=== PATIENT | male | born 1930 | race Hispanic/Latino ===

== ENCOUNTER → 2017-06-06 | Outpatient (CLI) | payer BC, MEDICARE ==
[~2017-06-06] MED LIST: AEC81 PO; LINA5TAB PO; LORA10CA PO; LOSA50TA37 PO; METO-408 PO; ROSU10TA PO
== END | disposition home or self-care (01) ==
LOC: SHCH 08:01
PROVIDERS: ATTEND Internal Medicine Cardiovascular Disease
DX: I10 Essential (primary) hypertension (principal)
CPT/HCPCS: 93306

== ENCOUNTER → 2017-08-13 | Outpatient (CLI) | payer BC, MEDICARE | LOC: RAH 16:08 | PROVIDERS: ATTEND Internal Medicine | DX: M19.072 Primary osteoarthritis, left ankle and foot (principal); M77.32 Calcaneal spur, left foot; M25.872 Other specified joint disorders, left ankle and foot; L03.116 Cellulitis of left lower limb | CPT/HCPCS: 73630 ==

== ENCOUNTER → 2020-04-15 | Outpatient (CLI) | payer OTHER, MEDICARE ==
[~2020-04-15] MED LIST changes: -LOSA50TA37 PO; +LOSA50TA64 PO; -ROSU10TA PO; +ROSU10TA22 PO
== END | disposition home or self-care (01) ==
LOC: SHCH 13:15
PROVIDERS: ATTEND Internal Medicine Cardiovascular Disease
DX: I11.9 Hypertensive heart disease without heart failure (principal)
CPT/HCPCS: 93306; 93356

== ENCOUNTER → 2020-04-20 | Outpatient (CLI) | payer OTHER, MEDICARE | END | disposition home or self-care (01) | LOC: SHCH 12:37 | PROVIDERS: ATTEND Internal Medicine Cardiovascular Disease | DX: I82.812 Embolism and thrombosis of superficial veins of left lower extremity (principal); R60.9 Edema, unspecified | CPT/HCPCS: 93970 ==

== ENCOUNTER → 2020-08-31 | Outpatient (CLI) | payer MEDICARE, OTHER | END | disposition home or self-care (01) | LOC: RAH 11:33 | PROVIDERS: ATTEND Internal Medicine | DX: Z01.818 Encounter for other preprocedural examination (principal) | CPT/HCPCS: 71046 ==

== ENCOUNTER → 2020-09-06 | Outpatient (CLI) | payer MEDICARE, OTHER ==
[~2020-09-06] VITALS: Ht 172.7 cm; Wt 70.3 kg
[~2020-09-06] MED LIST changes: +ASCO500T20 PO; +BIOT10005 PO; +ESOM40CA54 PO; +FOLIC ACID PO; +LOSA100T58 PO; +METO-391 PO; +REGADENOSON 0.4 MG/5 ML PF SYG IVP SCH; +SITA50TA PO; +VITAMIN B12 IM; +VITAMIN D3 PO
== END | disposition home or self-care (01) ==
LOC: SHCH 08:56
PROVIDERS: ATTEND Internal Medicine Cardiovascular Disease
DX: R06.00 Dyspnea, unspecified (principal); R55 Syncope and collapse
CPT/HCPCS: 78452; 93017; 96374; A9500 ×2

== ENCOUNTER 2020-09-08 20:04 | Emergency (ER) | payer OTHER, MEDICARE ==
[~2020-09-08] VITALS: Ht 170.2 cm; Wt 71.7 kg
[~2020-09-08 20:04] MED LIST changes: -ASCO500T20 PO; -BIOT10005 PO; -ESOM40CA54 PO; -FOLIC ACID PO; -LOSA100T58 PO; -METO-391 PO; -REGADENOSON 0.4 MG/5 ML PF SYG IVP SCH; -SITA50TA PO; -VITAMIN B12 IM; -VITAMIN D3 PO
[2020-09-08] MEDS ORDERED: HYDROCODONE/ACETAMINOPHEN 10/325 MG TAB ONE (20:41)
[2020-09-08] MEDS ORDERED: TETANUS/DIPHTHERIA TOXOID [ADULT] 0.5 ML VIAL IM ONE (20:41)
[2020-09-08 21:01] LABS: BASOPHILS % (AUTO) 0.5 % (0.0-5.0); EOSINOPHILS % (AUTO) 3.1 % (0.0-8.0); HEMATOCRIT 26.4 % (42-54); LYMPHOCYTES % (AUTO) 31.9 % (21.0-51.0); MEAN CORPUSCULAR HEMOGLOBIN 33.6 pg (27.0-33.0); MEAN CORPUSCULAR HGB CONC 34.5 g/dL (32.0-36.0); MEAN CORPUSCULAR VOLUME 97.4 fL (79-99); MONOCYTES % (AUTO) 10.3 % (3.0-13.0); NEUTROPHILS % (AUTO) 53.2 % (40.0-77.0); PLATELET COUNT (AUTO) 235 K/uL (130-400); RED BLOOD CELL COUNT(AUTO) 2.71 MIL/uL (4.50-6.20); RED CELL DISTRIBUTION WIDTH 15.3 % (11.0-15.5); WHITE BLOOD COUNT (AUTO) 8.2 K/uL (4.8-10.8)
[2020-09-08 21:11] LABS: CREATININE 1.5 mg/dL (0.5-1.5)
[2020-09-08 21:17] LABS: INR 0.98 (0.85-1.15); PROTHROMBIN TIME 10.7 SEC (9.6-11.6)
[2020-09-08 21:18] LABS: PARTIAL THROMBOPLASTIN TIME 24.5 SEC (26.3-35.5)
[2020-09-08 21:20] LABS: ALBUMIN 3.6 g/dL (3.5-5.0); BILIRUBIN,TOTAL 0.3 mg/dL (0.2-1.0); TOTAL PROTEIN, SERUM 7.5 g/dL (6.0-8.3)
[2020-09-08] MEDS ORDERED: NIFEDIPINE 10 MG CAP PO SCH (21:45)
[2020-09-14] MEDS ORDERED: SITA50TA PO (13:52)
[2020-09-14] MEDS ORDERED: METO-391 PO (13:52)
[2020-09-14] MEDS ORDERED: ASCO500T20 PO (13:52)
[2020-09-14] MEDS ORDERED: ESOM40CA54 PO (13:52)
[2020-09-14] MEDS ORDERED: LOSA100T58 PO (13:52)
[2020-09-14] MEDS ORDERED: VITAMIN D3 PO (13:52)
[2020-09-14] MEDS ORDERED: BIOT10005 PO (13:52)
[2020-09-14] MEDS ORDERED: FOLIC ACID PO (13:52)
[2020-09-14] MEDS ORDERED: VITAMIN B12 IM (13:52)
== END 2020-09-08 22:03 | disposition home or self-care (01) ==
LOC: EDH 20:04
DX: S01.112A Laceration without foreign body of left eyelid and periocular area, initial encounter (principal); S51.012A Laceration without foreign body of left elbow, initial encounter; D64.9 Anemia, unspecified; I25.10 Atherosclerotic heart disease of native coronary artery without angina pectoris; I10 Essential (primary) hypertension; W18.39XA Other fall on same level, initial encounter; Y93.01 Activity, walking, marching and hiking; Y92.89 Other specified places as the place of occurrence of the external cause; Y99.8 Other external cause status
CPT/HCPCS: 12011; 36415; 70450; 71045; 72125; 73080; 80053; 84484; 85025; 85610; 85730; 90471; 90714; 93005

== ENCOUNTER 2020-09-15 09:28 | Day surgery (SDC) | payer OTHER, MEDICARE ==
[2020-09-13 14:36] LABS: APPEARANCE,URINE Cloudy (CLEAR); BASOPHILS % (AUTO) 0.5 % (0.0-5.0); BILIRUBIN,URINE Small (NEGATIVE); COLOR,URINE Dark Yellow (YELLOW); EOSINOPHILS % (AUTO) 1.7 % (0.0-8.0); GLUCOSE, URINE (UA) Negative (NEGATIVE); HEMATOCRIT 28.5 % (42-54); KETONES,URINE 15 mg/dL (NEGATIVE); LEUKOCYTE ESTERASE ,URINE Trace (NEGATIVE); LYMPHOCYTES % (AUTO) 21.9 % (21.0-51.0); MEAN CORPUSCULAR HEMOGLOBIN 32.3 pg (27.0-33.0); MEAN CORPUSCULAR HGB CONC 35.1 g/dL (32.0-36.0); MEAN CORPUSCULAR VOLUME 91.9 fL (79-99); NITRATE,URINE Negative (NEGATIVE); OCCULT BLOOD,URINE Negative (NEGATIVE); PLATELET COUNT (AUTO) 339 K/uL (130-400); PROTEIN,URINE POS 2+ mg/dL (NEGATIVE); RED CELL DISTRIBUTION WIDTH 14.6 % (11.0-15.5); WHITE BLOOD COUNT (AUTO) 10.4 K/uL (4.8-10.8)
[2020-09-13 14:45] LABS: CREATININE 1.5 mg/dL (0.5-1.5); POTASSIUM 3.9 mmol/L (3.5-5.1)
[2020-09-13 14:47] LABS: PROTHROMBIN TIME 10.9 SEC (9.6-11.6)
[2020-09-13 14:48] LABS: PARTIAL THROMBOPLASTIN TIME 26.1 SEC (26.3-35.5)
[2020-09-13 15:21] LABS: MUCUS,URINE Many LPF (None Seen)
[2020-09-13 15:27] LABS: BACTERIA,URINE Few /HPF (None Seen); RBC,URINE None Seen /HPF (0-1); SQUAMOUS EPITHELIAL CELL,UR 0-2 /HPF (0-2)
[2020-09-14 13:25] VITALS: BP 116/69
[2020-09-15] VITALS (10 sets, daily range): BP systolic 131–160; BP diastolic 67–78
[~2020-09-15] VITALS: Ht 170.2 cm; Wt 71.7 kg
[~2020-09-15 09:28] MED LIST changes: -AEC81 PO; +ASCO500T20 PO; +BIOT10005 PO; +ESOM40CA54 PO; +FOLIC ACID PO; -LINA5TAB PO; -LORA10CA PO; +LOSA100T58 PO; -LOSA50TA64 PO; +METO-391 PO; -METO-408 PO; +SITA50TA PO; +SODIUM CHLORIDE 0.9% 500ML 500 ML IV SCH; +VITAMIN B12 IM; +VITAMIN D3 PO
[2020-09-15] MEDS ORDERED: SODIUM CHLORIDE 0.9% 1000ML 1,000 ML IV ONE (10:32)
[2020-09-15] MEDS ORDERED: MIDAZOLAM HCL 1 MG/ML 2ML VIAL ONE (12:04)
[2020-09-15] MEDS ORDERED: NITROGLYCERIN 2 MG/VIAL VIAL IV ONE (12:04)
[2020-09-15] MEDS ORDERED: IOHEXOL 350 MG/ML 100ML INFUS..BTL IV ONE (12:04)
[2020-09-15] MEDS ORDERED: HEPARIN SODIUM 1000UNIT/ML 10ML VIAL ONE (12:04)
[2020-09-15] MEDS ORDERED: LIDOCAINE HCL 2% 20ML ONE (12:04)
[2020-09-15] MEDS ORDERED: IOHEXOL-350 50ML VIAL IV ONE (12:04)
[2020-09-15] MEDS ORDERED: NICARDIPINE HCL 25 MG/10 ML ML IV ONE (12:04)
[2020-09-15] MEDS ORDERED: MEPERIDINE-PF 25 MG/ML SYG ONE (12:04)
[2020-09-15] MEDS ORDERED: SODIUM BICARB 50MEQ 50ML VIAL 50 ML ONE (12:04)
[2020-09-15] MEDS ORDERED: SODIUM CHLORIDE 0.9% 1000ML 1,000 ML IV SCH (13:45)
[2020-09-15] MEDS ORDERED: DEXTROSE 50%-WATER 50 ML DISP.SYRIN IV PRN (13:45)
[2020-09-15] MEDS ORDERED: ACETAMINOPHEN 325 MG TAB ONE (16:12)
[2020-09-15] MEDS ORDERED: ACETAMINOPHEN 325 MG TAB PO ONE (16:15)
[2020-09-15] MEDS ORDERED: INSULIN HUMULIN R 100 UNIT/ML 3ML SQ SCH (16:30)
== END 2020-09-15 17:40 | disposition home or self-care (01) ==
LOC: DAH 09:28
PROVIDERS: ATTEND Internal Medicine Cardiovascular Disease
DX: I25.119 Atherosclerotic heart disease of native coronary artery with unspecified angina pectoris (principal); I10 Essential (primary) hypertension; E78.5 Hyperlipidemia, unspecified; E11.9 Type 2 diabetes mellitus without complications; D64.9 Anemia, unspecified; Z79.899 Other long term (current) drug therapy; Z98.890 Other specified postprocedural states; Z79.82 Long term (current) use of aspirin; Z79.84 Long term (current) use of oral hypoglycemic drugs; Z79.01 Long term (current) use of anticoagulants; Z95.5 Presence of coronary angioplasty implant and graft
CPT/HCPCS: 36415; 71045; 80048; 81001; 82948 ×2; 85025; 85610; 85730; 93005; 93458; A4215; A4216; A4221; A4222; A4223 ×3; A4606; A4663; C1769; C1894; J1644 ×2; J2175; J2250; J3490 ×4; J7030; Q9965; Q9967 ×2; 96360; 96361; 99156; 99157

== ENCOUNTER → 2020-10-12 | Outpatient (CLI) | payer MEDICARE, OTHER ==
[~2020-10-12] MED LIST changes: +IOHEXOL-350 75 ML VIAL IV ONE; -SODIUM CHLORIDE 0.9% 500ML 500 ML IV SCH
== END | disposition home or self-care (01) ==
LOC: RAH 07:51
PROVIDERS: ATTEND Internal Medicine
DX: G46.2 Posterior cerebral artery syndrome (principal); I67.2 Cerebral atherosclerosis
CPT/HCPCS: 70496; Q9967

== ENCOUNTER 2020-12-21 10:29 | Day surgery (SDC) | payer MEDICARE ==
[~2020-12-21] VITALS: Ht 170.2 cm; Wt 64.4 kg
[~2020-12-21 10:29] MED LIST changes: -IOHEXOL-350 75 ML VIAL IV ONE
[2020-12-21] MEDS ORDERED: 0.9%NACL 1000ML 1,000 ML IV ONE (11:23)
[2020-12-21 11:48] VITALS: BP 150/78
[2020-12-21 12:05] LABS: BASOPHILS % (AUTO) 1.1 % (0.0-5.0); EOSINOPHILS % (AUTO) 1.9 % (0.0-8.0); HEMATOCRIT 27.9 % (42-54); LYMPHOCYTES % (AUTO) 13.8 % (21.0-51.0); MEAN CORPUSCULAR HEMOGLOBIN 32.5 pg (27.0-33.0); MEAN CORPUSCULAR HGB CONC 34.1 g/dL (32.0-36.0); MEAN CORPUSCULAR VOLUME 95.5 fL (79-99); MONOCYTES % (AUTO) 12.7 % (3.0-13.0); NEUTROPHILS % (AUTO) 69.8 % (40.0-77.0); PLATELET COUNT (AUTO) 282 K/uL (130-400); RED BLOOD CELL COUNT(AUTO) 2.92 MIL/uL (4.50-6.20); RED CELL DISTRIBUTION WIDTH 20.7 % (11.0-15.5); WHITE BLOOD COUNT (AUTO) 8.6 K/uL (4.8-10.8)
[2020-12-21 13:50] VITALS: BP 120/64
[2020-12-21] MEDS ORDERED: AMLO2.5T4 PO (13:57)
[2020-12-21] MEDS ORDERED: PNV#1COM14 PO (13:57)
[2020-12-21] MEDS ORDERED: ASPI-1197 PO (13:57)
[2020-12-21 14:00] VITALS: BP 107/64
[2020-12-21 14:10] VITALS: BP 119/67
[2020-12-21 14:25] VITALS: BP 118/71
== END 2020-12-21 14:10 | disposition home or self-care (01) ==
LOC: DAH 10:29 → ENDO 10:29
PROVIDERS: ATTEND Internal Medicine Gastroenterology
DX: R93.5 Abnormal findings on diagnostic imaging of other abdominal regions, including retroperitoneum (principal); Z20.822 Contact with and (suspected) exposure to COVID-19; K86.89 Other specified diseases of pancreas; K83.8 Other specified diseases of biliary tract; I10 Essential (primary) hypertension; G47.30 Sleep apnea, unspecified; E11.8 Type 2 diabetes mellitus with unspecified complications; E78.5 Hyperlipidemia, unspecified; E78.00 Pure hypercholesterolemia, unspecified; D64.9 Anemia, unspecified; K59.04 Chronic idiopathic constipation; Z72.89 Other problems related to lifestyle; Z86.73 Personal history of transient ischemic attack (TIA), and cerebral infarction without residual deficits; Z79.82 Long term (current) use of aspirin; Z79.899 Other long term (current) drug therapy; Z98.890 Other specified postprocedural states
CPT/HCPCS: 36415; 43238; 82948; 85025; 87426; A4215 ×2; A4221; A4222; A4223; A4606; A4620; A4657; A4663; J7030

== ENCOUNTER 2020-12-22 06:00 | Day surgery (SDC) | payer MEDICARE ==
[2020-12-22] VITALS (11 sets, daily range): BP systolic 139–168; BP diastolic 70–88
[~2020-12-22] VITALS: Ht 170.2 cm; Wt 64.4 kg
[~2020-12-22 06:00] MED LIST changes: +AMLO2.5T4 PO; -ASCO500T20 PO; +ASPI-1197 PO; -BIOT10005 PO; +EPHEDRINE SULFATE 50 MG/ML AMPULE ONE; +INDOMETHACIN 50 MG SUPP.RECT RC SCH; +LIDOCAINE PF 100MG/5ML (2%) SYRINGE 5ML ONE; +PNV#1COM14 PO; +PROPOFOL 10 MG/ML 20ML VIAL IV ONE; -ROSU10TA22 PO; -VITAMIN B12 IM
[2020-12-22] MEDS ORDERED: 0.9%NACL 1000ML 1,000 ML IV ONE (06:17)
[2020-12-22] MEDS ORDERED: IOHEXOL-350 50ML VIAL IV ONE (06:43)
[2020-12-22] MEDS ORDERED: LIDOCAINE HCL 400MG/20ML VIAL ONE (06:51)
[2020-12-22] MEDS ORDERED: FENTANYL CITRATE PF 50 MCG/1 ML 2ML VIAL ONE (06:51)
[2020-12-22] MEDS ORDERED: PROPOFOL 10 MG/ML 20ML VIAL IV ONE (06:51)
[2020-12-22] MEDS ORDERED: ONDANSETRON 4MG INJ ONE (08:46)
== END 2020-12-22 09:20 | disposition home or self-care (01) ==
LOC: DAH 06:00 → ENDO 06:00
PROVIDERS: ATTEND Internal Medicine Gastroenterology
DX: K83.1 Obstruction of bile duct (principal); D49.0 Neoplasm of unspecified behavior of digestive system; K86.89 Other specified diseases of pancreas; G47.30 Sleep apnea, unspecified; I10 Essential (primary) hypertension; E11.8 Type 2 diabetes mellitus with unspecified complications; K57.30 Diverticulosis of large intestine without perforation or abscess without bleeding; D64.9 Anemia, unspecified; E78.00 Pure hypercholesterolemia, unspecified; K59.04 Chronic idiopathic constipation; Z86.73 Personal history of transient ischemic attack (TIA), and cerebral infarction without residual deficits; Z79.82 Long term (current) use of aspirin; Z79.899 Other long term (current) drug therapy; Z98.890 Other specified postprocedural states; Z72.89 Other problems related to lifestyle
CPT/HCPCS: 43274; 74328; 82948; 88112; 88173; 88305; A4215; A4221; A4222; A4223; A4606; A4649; A4657; A4663; C1769 ×2; C1876; J2001; J2405; J2704 ×5; J3010; J3490 ×2; J7030; Q9967; 74330